=== PATIENT | female | born 1965 | race Caucasian/White ===

== ENCOUNTER 2025-10-07 02:31 | Inpatient (IN) | payer SELFPAY ==
[~2025-10-07] VITALS: Ht 162.6 cm; Wt 125.6 kg
[2025-10-07 02:43] VITALS: O2SAT 98
[2025-10-07] MEDS: SODIUM CHLORIDE 0.9% (SEPSIS BOLUS) IV ONE (03:33)
[2025-10-07] MEDS: PIPERACILLIN/TAZO 3.375G/50ML 50 ML IV ONE (03:37)
[2025-10-07 03:50] LABS: BASOPHILS % 0.5 % (0.0-2.0); EOSINOPHILS % 1.7 % (0.0-5.0); HEMATOCRIT. 35.6 % (36.0-48.0); HEMOGLOBIN. 11.7 g/dL (12.0-16.0); LYMPHOCYTES % 15.6 % (20.0-50.0); MEAN PLATELET VOLUME 10.7 fl (7.4-10.4); MONOCYTES % 7.2 % (2.0-8.0); NEUTROPHILS % 75.0 % (40.0-76.0); PLATELET 212 x1000/uL (130-400); RED BLOOD CELL COUNT 3.92 mill/uL (4.2-5.4); RED CELL DISTRIBUTION WIDTH 14.4 % (11.6-14.6)
[2025-10-07 03:58] LABS: CREATININE 0.7 mg/dL (0.6-1.0)
[2025-10-07 03:59] LABS: UREA NITROGEN BLOOD 23 mg/dL (9-23)
[2025-10-07 04:00] LABS: ASPARTATE AMINOTRANSFERASE 251 IU/L (<34)
[2025-10-07 04:01] LABS: BILIRUBIN DIRECT 0.4 mg/dL (<=3.0); BILIRUBIN TOTAL 1.2 mg/dL (0.1-1.0); PROTEIN TOTAL 6.6 g/dL (6.0-8.3)
[2025-10-07] MEDS: POTASSIUM CHLORIDE 20MEQ/PACKET PO NR (04:46)
[2025-10-07] MEDS: VANCOMYCIN 1G PREMIX 200 ML IV ONE (04:46)
[2025-10-07] MEDS ORDERED: CLONIDINE 0.1MG TABLET PO PRN (06:15)
[2025-10-07] MEDS ORDERED: DEXTROSE 50% WATER 50ML SYRINGE IV PRN (06:15)
[2025-10-07] MEDS ORDERED: ONDANSETRON HCL 4MG/2ML INJ IV PRN (06:15)
[2025-10-07] MEDS ORDERED: ACETAMINOPHEN 325MG TABLET PO PRN (06:15)
[2025-10-07] MEDS: ACETAMINOPHEN 1000MG/100ML 100 ML IV ONE (06:35)
[2025-10-07 06:59] LABS: BASOPHILS % 0.6 % (0.0-2.0); EOSINOPHILS % 1.7 % (0.0-5.0); HEMATOCRIT. 35.4 % (36.0-48.0); HEMOGLOBIN. 11.6 g/dL (12.0-16.0); LYMPHOCYTES % 16.9 % (20.0-50.0); MEAN PLATELET VOLUME 10.9 fl (7.4-10.4); MONOCYTES % 8.6 % (2.0-8.0); NEUTROPHILS % 72.2 % (40.0-76.0); PLATELET 224 x1000/uL (130-400); RED BLOOD CELL COUNT 3.88 mill/uL (4.2-5.4); RED CELL DISTRIBUTION WIDTH 14.4 % (11.6-14.6)
[2025-10-07] MEDS ORDERED: PIPERACILLIN/TAZO 3.375G/50ML 50 ML IV SCH (07:00)
[2025-10-07 07:15] LABS: UREA NITROGEN BLOOD 16 mg/dL (9-23)
[2025-10-07 07:17] LABS: PHOSPHORUS 3.1 mg/dL (2.5-4.9)
[2025-10-07 07:18] LABS: CREATININE 0.3 mg/dL (0.6-1.0)
[2025-10-07] MEDS: INSULIN LISPRO 100 UNITS/ML SUBCUT SCH (08:20)
[2025-10-07] MEDS: BLOOD SUGAR DIAGNOSTIC STRIP TEST SCH (08:49)
[2025-10-07] MEDS: FOLIC ACID 1MG TABLET PO SCH (09:07)
[2025-10-07] MEDS: MULTIVITAMINS,THER W-MINERALS TABLET PO SCH (09:07)
[2025-10-07] MEDS: ACETAMINOPHEN 325MG TABLET PO PRN (09:07)
[2025-10-07] MEDS: ENOXAPARIN 30MG/0.3ML SYR SUBCUT SCH (09:08)
[2025-10-07] MEDS: PIPERACILLIN/TAZO 3.375G/50ML 50 ML IV SCH (09:09)
[2025-10-07] MEDS: PRAMIPEXOLE DI-HCL 0.25MG TABLET PO SCH (09:38)
[2025-10-07] MEDS ORDERED: VANCOMYCIN 1GM/200ML PMX (BAXTER) IV SCH (12:00)
[2025-10-07] MEDS: VANCOMYCIN 750MG/150ML (BAXTER) IV SCH ×2 (12:15→21:54)
[2025-10-07 14:41] VITALS: BP 131/73; PULSE 66; RESP 18; TEMP 36.6404
[2025-10-07 16:00] VITALS: BP 109/50; PULSE 69; RESP 18; TEMP 36.5; O2SAT 97
[2025-10-07] MEDS ORDERED: PRAM1.5T5 PO (16:38)
[2025-10-07 20:00] VITALS: BP 119/59; PULSE 59; RESP 17; TEMP 36.8; O2SAT 96
[2025-10-08] VITALS: BP 149/77; PULSE 62; RESP 17; TEMP 36.7; O2SAT 95
[2025-10-08 04:00] VITALS: BP 129/72; PULSE 61; RESP 18; TEMP 36.4; O2SAT 98
[2025-10-08 08:00] VITALS: BP 116/66; PULSE 64; RESP 17; TEMP 36.1; O2SAT 97
[2025-10-08 08:43] LABS: BASOPHILS % 0.4 % (0.0-2.0); EOSINOPHILS % 4.1 % (0.0-5.0); HEMATOCRIT. 34.1 % (36.0-48.0); HEMOGLOBIN. 11.2 g/dL (12.0-16.0); LYMPHOCYTES % 20.0 % (20.0-50.0); MEAN PLATELET VOLUME 10.9 fl (7.4-10.4); MONOCYTES % 8.0 % (2.0-8.0); NEUTROPHILS % 67.5 % (40.0-76.0); PLATELET 197 x1000/uL (130-400); RED BLOOD CELL COUNT 3.72 mill/uL (4.2-5.4); RED CELL DISTRIBUTION WIDTH 14.3 % (11.6-14.6)
[2025-10-08 08:57] LABS: UREA NITROGEN BLOOD 14 mg/dL (9-23)
[2025-10-08 08:59] LABS: PHOSPHORUS 2.8 mg/dL (2.5-4.9)
[2025-10-08 09:01] LABS: T4 FREE 0.27 ng/dL (0.89-1.76)
[2025-10-08 09:36] LABS: CREATININE 0.5 mg/dL (0.6-1.0)
[2025-10-08 12:00] VITALS: BP 109/66; PULSE 64; RESP 15; TEMP 36.1; O2SAT 98
[2025-10-08 15:23] LABS: *AMPHETAMINES SCREEN URINE PRESUMPTIVE POSITIVE (NEGATIVE); *BARBITURATES SCREEN URINE NEGATIVE (NEGATIVE); *BENZODIAZEPINES SCREEN URINE NEGATIVE (NEGATIVE); *COCAINE SCREEN URINE NEGATIVE (NEGATIVE); CANNABINOID URINE SCREEN NEGATIVE (NEGATIVE); ECSTASY MDMA SCREEN URINE NEGATIVE (NEGATIVE); METHADONE URINE SCREEN NEGATIVE (NEGATIVE); OPIATES URINE SCREEN NEGATIVE (NEGATIVE); PHENCYCLIDINE URINE SCREEN NEGATIVE (NEGATIVE)
[2025-10-08] MEDS: VANCOMYCIN 1.25GM/250ML IV SCH (15:30)
[2025-10-08] MEDS: LEVOTHYROXINE SODIUM 200MCG TABLET PO SCH (15:30)
[2025-10-08 15:44] LABS: GLUCOSE URINE NEGATIVE (NEGATIVE); KETONES URINE TRACE (NEGATIVE); LEUKOCYTE ESTERASE URINE TRACE (NEGATIVE); NITRITE URINE NEGATIVE (NEGATIVE); OCCULT BLOOD URINE NEGATIVE (NEGATIVE); PH URINE 5.5 (4.5-8.0); PROTEIN URINE TRACE (NEGATIVE); SPECIFIC GRAVITY URINE 1.036 (1.005-1.030); UROBILINOGEN URINE 1.0 E.U./dL (0.2-1.0)
[2025-10-08 16:00] VITALS: BP 110/66; PULSE 64; RESP 17; TEMP 36.1; O2SAT 97
[2025-10-08] MEDS: POTASSIUM CHLORIDE 20MEQ/PACKET PO SCH (16:36)
[2025-10-08 16:56] LABS: CLARITY URINE SL HAZY (CLEAR); COLOR URINE YELLOW (YELLOW)
[2025-10-08 16:58] LABS: RBC URINE NONE SEEN /hpf (0-2); WBC URINE 0-2 /hpf (0-2)
[2025-10-08 16:59] LABS: BACTERIA URINE TRACE
[2025-10-08 17:00] LABS: CALCIUM OXALATE CRYSTALS URINE 1+ /lpf; SQUAMOUS EPITHELIAL CELL URINE 1+ /lpf (RARE/1+)
[2025-10-08 17:01] LABS: MUCUS URINE TRACE /lpf (< = 2+); URIC ACID CRYSTALS URINE 1+ /lpf
[2025-10-08 20:00] VITALS: BP 108/47; PULSE 61; RESP 18; TEMP 36.5; O2SAT 98
[2025-10-08] MEDS: LORAZEPAM 0.5MG TABLET PO PRN (20:37)
[2025-10-08] MEDS: ENOXAPARIN 30MG/0.3ML SYR SUBCUT SCH (20:42)
[2025-10-09] VITALS: BP 130/52; PULSE 61; RESP 18; TEMP 36.4; O2SAT 98
[2025-10-09 04:00] VITALS: BP 144/57; PULSE 60; RESP 18; TEMP 36.3; O2SAT 98
[2025-10-09] MEDS: BLOOD SUGAR DIAGNOSTIC STRIP TEST SCH (05:30)
[2025-10-09] MEDS ORDERED: SYN200 MT (09:26)
[2025-10-09 12:03] VITALS: BP 144/74; PULSE 81; RESP 20; TEMP 98
== END 2025-10-09 13:30 | disposition home or self-care (01) | DRG 720 ==
LOC: ER 02:31 → 8WST 04:19 → EDBEDREQTM 04:28 → EDBEDREQ 04:28 → 8WST 12:59
PROVIDERS: ADMIT Student in an Organized Health Care Education/Training Program; ATTEND Student in an Organized Health Care Education/Training Program
DX: A41.9 Sepsis, unspecified organism (principal); E87.0 Hyperosmolality and hypernatremia; L03.211 Cellulitis of face; G25.81 Restless legs syndrome; E03.9 Hypothyroidism, unspecified; E66.01 Morbid (severe) obesity due to excess calories; E87.6 Hypokalemia; Z68.42 Body mass index [BMI] 45.0-49.9, adult
CPT/HCPCS: 36415; 71045; 80048; 80076; 80202; 80305; 81003; 82962; 83036; 83605; 83735; 84100; 84439; 84443; 85025; 93005; 99291; J1650; J2543; J3373; J7030; J0131